=== PATIENT | female | born 1990 | race Caucasian/White ===

== ENCOUNTER → 2017-02-02 | Outpatient (CLI) | payer BC ==
--- NOTE | 2017-02-03 | MR ---
EXAMINATION TYPE: MR abdomen wo/w con DATE OF EXAM: 02/02/2017 COMPARISON: NONE HISTORY: lt lower quad pain CONTRAST: Standard multiplanar, multisequence MRI departmental protocol utilizing 8.5 mL intravenous Gadavist g adolinium contrast. FINDINGS: Liver spleen pancreas appear normal. Gallbladder is contracted. Bile ducts are not dilated. There is no adrenal mass. Kidneys have normal size and contour. There is no hydronephrosis. There is no evidence of retroperitoneal adenopathy. There is no ascites. I see no sign of an intestinal mass. There is no pathologic enhancement. There is no sign of pleural effusion. Contrast images show no pat hologic enhancement. There is normal contrast opacification of the kidneys. There is probably a 5 mm cyst in the interpolar right kidney. I see no bony destructive process. IMPRESSION: Small right renal cortical cyst. Otherwise negative MR scan of the abdomen.
== END | disposition home or self-care (01) ==
LOC: RADMRIMAIN 05:51
PROVIDERS: ATTEND Family Medicine
DX: N28.1 Cyst of kidney, acquired (principal)
CPT/HCPCS: 74183; A9581

== ENCOUNTER → 2017-02-03 | Outpatient (CLI) | payer BC ==
--- NOTE | 2017-02-03 07:23 | MR ---
EXAMINATION TYPE: MR pelvis wo/w con DATE OF EXAM: 02/03/2017 COMPARISON: MRI abdomen from yesterday. HISTORY: lt lower quad pain CONTRAST: Standard multiplanar, multisequence MRI departmental protocol utilizing 8.5 mL intravenous Gadavist g adolinium contrast. Imaging is performed of the pelvis. FINDINGS: Uterus is heterogeneous in appearance, anteverted in shape, and normal in size. Endometrial canal and junctional zone are felt within normal limits. There is 5 mm nabothian cyst seen in left a spect of cervix on axial image 12. No free fluid in pelvic cul-de-sac is present. Both ovaries are id entified, right ovary seen best on series 501 image 18 and left ovary on axial image 24. Both ovaries are normal in size with scattered peripheral follicles. No suspicious adnexal masses are seen. Visualized portion of bowel shows no suspicious dilatation. There is some prominence of fecal materia l in the rectum. There is no greater than 1 cm pelvic adenopathy. No suspicious groin adenopathy is seen. No suspiciou s fat or bowel containing inguinal hernia is present. Visualized osseous structures are intact. Hip joint spaces are maintained. Pubic symphysis is intact. Sacroiliac joints are felt within normal limits. No suspicious postcontrast enhancement is seen. IMPRESSION: Moderate rectal colonic fecal stasis. No bowel obstruction is seen. Incidental 5 mm left-sided naboth lucrecia cyst otherwise unremarkable study.
== END | disposition home or self-care (01) ==
LOC: RADMRIMAIN 05:58
PROVIDERS: ATTEND Family Medicine
DX: K56.41 Fecal impaction (principal)
CPT/HCPCS: 72197; A9581

== ENCOUNTER 2017-06-30 10:47 | Emergency (ER) | payer BC ==
[2017-06-30 11:42] LABS: Bacteria,Urine Few /hpf; Hyaline Casts,Urine 29 /lpf (0-2); Mucus,Urine Occasional /hpf; RBC,Urine 11 /hpf (0-5); Squamous Epithelial Cell,Urine 12 /hpf (0-4); WBC,Urine >182 /hpf (0-5)
[2017-06-30 11:44] LABS: Appearance,Urine Cloudy (Clear)
[2017-06-30 11:45] LABS: Color,Urine Dark Orange
[2017-06-30] MEDS ORDERED: FLUCONAZOLE 150 MG TAB PO STA (13:50)
[2017-06-30] MEDS ORDERED: ONDANSETRON 4 MG TAB PO STA (13:50)
--- NOTE | 2017-06-30 14:04 | ED ---
Abdominal Pain HPI - General Chief Complaint: Abdominal Pain Stated Complaint: POSS UTI, UNABLE TO EAT Time Seen by Provider: 06/30/17 13:42 Source: patient, RN notes reviewed Mode of arrival: ambulatory Limitations: no limitations - History of Present Illness Initial Comments: This is a 26 year old female who presents with a chief complaint of abdominal pain and urinary tract infection. The patient began treatment with Bactrim twice daily 3 days ago, but has shown no improvement of symptoms. The patient states she has now developed a yeast infection and has felt nauseous since beginning the Bactrim. She is currently taking AZO to help relieve her symptoms. She reports her last bowel movement was 4 days ago and it was loose. She denies fever or back pain. She currently feels nauseous and has had limited food intake due to GI upset. Patient states symptoms also started after starting Bactrim - Related Data Home Medications Medication Instructions Recorded Confirmed Ibuprofen [Motrin Ib] 800 mg PO Q6H PRN 06/30/17 06/30/17 Norgestimate-Ethinyl Estradiol 1 tab PO HS 06/30/17 06/30/17 [Sprintec 28 Day Tablet] Sulfamethox-Tmp 800-160Mg [Bactrim 1 tab PO Q12HR 06/30/17 06/30/17 DS 800-160 mg] Uristat 1 tab PO QID PRN 06/30/17 06/30/17 Previous Rx's Medication Instructions Recorded Ciprofloxacin HCl [Cipro] 500 mg PO Q12HR #14 tablet 06/30/17 Fluconazole [Diflucan] 150 mg PO ONCE #2 tab 06/30/17 Ondansetron Odt [Zofran Odt] 4 mg PO Q8HR PRN #10 tab 06/30/17 Allergies Allergy/AdvReac Type Severity Reaction Status Date / Time hydrocodone [From Vicodin] Allergy Nausea & Verified 06/30/17 13:52 Vomiting Review of Systems ROS Statement: Those systems with pertinent positive or pertinent negative responses have been documented in the HPI. ROS Other: All systems not noted in ROS Statement are negative. Past Medical History Past Medical History: No Reported History History of Any Multi-Drug Resistant Organisms: None Reported Past Surgical History: Adenoidectomy, Ear Surgery, Tonsillectomy Past Psychological History: No Psychological Hx Reported Smoking Status: Never smoker Past Alcohol Use History: None Reported Past Drug Use History: Marijuana General Exam Limitations: no limitations General appearance: alert, in no apparent distress Head exam: Present: atraumatic, normocephalic, normal inspection Respiratory exam: Present: normal lung sounds bilaterally. Absent: respiratory distress, wheezes, rales, rhonchi, stridor Cardiovascular Exam: Present: regular rate, normal rhythm, normal heart sounds. Absent: systolic murmur, diastolic murmur, rubs, gallop, clicks GI/Abdominal exam: Present: soft, normal bowel sounds. Absent: distended, tenderness, guarding, rebound, rigid Extremities exam: Present: normal inspection, full ROM, normal capillary refill. Absent: tenderness, pedal edema, joint swelling, calf tenderness Back exam: Present: normal inspection. Absent: CVA tenderness (R), CVA tenderness (L) Neurological exam: Present: alert, oriented X3, CN II-XII intact Psychiatric exam: Present: normal affect, normal mood Skin exam: Present: warm, dry, intact, normal color. Absent: rash Course Vital Signs 06/30/17 06/30/17 11:11 14:19 Temperature 97.9 F Pulse Rate 94 60 Respiratory 18 16 Rate Blood Pressure 125/72 124/78 O2 Sat by Pulse 96 95 Oximetry Medical Decision Making - Medical Decision Making This 26 year old patient presented with a urinary tract infection that was refractory to treatment with Bactrim. I spoke with the urgent care that prescribed the Bactrim and they informed me that there was no growth on the urine culture that was sent. A urinalysis and urine culture was ordered. She was given a dose of Diflucan 150mg and Zofran for nausea. The patient was instructed to discontinue the Bactrim and begin the Ciprofloxacin. She may take Zofran as needed for nausea and continue the Diflucan for her concurrent yeast infection. - Lab Data Lab Results 06/30/17 Range/Units 11:20 Urine Color [place] Urine Appearance Cloudy H (Clear) Urine RBC 11 H (0-5) /hpf Urine WBC >182 H (0-5) /hpf Ur Squamous Epith Cells 12 H (0-4) /hpf Urine Bacteria Few H (None) /hpf Hyaline Casts 29 H (0-2) /lpf Urine Mucus Occasional H (None) /hpf Disposition Clinical Impression: Urinary tract infection, Yeast infection of the vagina, Nausea Disposition: HOME SELF-CARE Condition: Stable Instructions: Urinary Tract Infection in Women (ED) Additional Instructions: Please return to the Emergency Department if experiencing new or worsening symptoms. Prescriptions: Ciprofloxacin HCl [Cipro] 500 mg PO Q12HR #14 tablet Fluconazole [Diflucan] 150 mg PO ONCE #2 tab Ondansetron Odt [Zofran Odt] 4 mg PO Q8HR PRN #10 tab PRN Reason: Nausea Referrals: Jose Hernandez MD [Primary Care Provider] - 1-2 days Time of Disposition: 14:20
[2017-06-30 14:19] VITALS: RESP 16
[2017-06-30] MEDS ORDERED: cefTRIAXone 1,000 MG VIAL (IM USE) IM STA (14:22)
[2017-06-30 14:51] VITALS: BP 130/71; PULSE 92; TEMP 97.8
== END 2017-06-30 14:50 | disposition home or self-care (01) ==
LOC: EC 10:47
DX: N39.0 Urinary tract infection, site not specified (principal); B37.3 Candidiasis of vulva and vagina; R11.0 Nausea; Z79.3 Long term (current) use of hormonal contraceptives; Z88.5 Allergy status to narcotic agent
CPT/HCPCS: 81001; 81025; 87086; 99284; 96372; J0696

== ENCOUNTER 2018-04-20 19:16 | Emergency (ER) | payer BC ==
[2018-04-20 19:26] VITALS: TEMP 98.5
[2018-04-20 20:38] LABS: Basophils % (A) 0 %; Eosinophils # (A) 0.2 k/uL (0-0.7); Eosinophils % (A) 3 %; HCT 38.4 % (34.0-46.0); HGB 12.2 gm/dL (11.4-16.0); Lymphocytes # (A) 1.8 k/uL (1.0-4.8); Lymphocytes % (A) 18 %; MCH 27.7 pg (25.0-35.0); MCHC 31.7 g/dL (31.0-37.0); MCV 87.5 fL (80.0-100.0); Mean Platelet Volume 6.9; Monocytes # (A) 0.5 k/uL (0-1.0); Monocytes % (A) 5 %; Neutrophils # (A) 7.1 k/uL (1.3-7.7); Neutrophils % (A) 72 %; Platelet Count 245 k/uL (150-450); RBC 4.39 m/uL (3.80-5.40); RDW 13.1 % (11.5-15.5); WBC 9.8 k/uL (3.8-10.6)
[2018-04-20 20:40] LABS: Appearance,Urine Clear (Clear); Bacteria,Urine Rare /hpf; Bilirubin,Urine Negative (Negative); Blood,Urine Negative (Negative); Color,Urine Light Yellow; Glucose,Urine (UA) Negative (Negative); Ketones,Urine Negative (Negative); Leukocyte Esterase,Urine Trace (Negative); Mucus,Urine Rare /hpf; Nitrite,Urine Negative (Negative); Protein,Urine Negative (Negative); RBC,Urine 1 /hpf (0-5); Specific Gravity,Urine 1.012 (1.001-1.035); Squamous Epithelial Cell,Urine 3 /hpf (0-4); Urobilinogen,Urine <2.0 mg/dL (<2.0)
[2018-04-20 20:48] LABS: ALT 33 U/L (9-52); AST 19 U/L (14-36); Alkaline Phosphatase 70 U/L (38-126); Anion Gap 9 mmol/L; Blood Urea Nitrogen 15 mg/dL (7-17); Calcium 9.7 mg/dL (8.4-10.2); Carbon Dioxide 25 mmol/L (22-30); Chloride 107 mmol/L (98-107); Glucose 109 mg/dL (74-99); Sodium 141 mmol/L (137-145); Total Bilirubin 0.2 mg/dL (0.2-1.3); Total Protein 6.8 g/dL (6.3-8.2)
[2018-04-20 22:14] VITALS: RESP 16
--- NOTE | 2018-04-20 22:30 | CT ---
EXAMINATION TYPE: CT brain wo con DATE OF EXAM: 04/20/2018 COMPARISON: None HISTORY: headache x7 days CT DLP: 8.8 combined study mGycm. Automated Exposure Control for Dose Reduction was Utilized. TECHNIQUE: CT scan of the head is performed without contrast. FINDINGS: Ventricles of normal size. There is no mass effect nor midline shift. There is no sign of i ntracranial hemorrhage. The calvarium is intact. IMPRESSION: Negative CT scan of the brain.
--- NOTE | 2018-04-20 22:33 | CT ---
EXAMINATION TYPE: CT angio [facility] DATE OF EXAM: 04/20/2018 10:03 PM COMPARISON: None HISTORY: headache x7 days CT DLP: 2037.8 combined study mGycm Automated exposure control for dose reduction was used. TECHNIQUE: Performed with IV Contrast, patient injected with 100 mL of Isovue 370. . There are 3-D post processed images. FINDINGS: There is arterial flow in the vertebrobasilar artery system. There is arterial flow in the distal int ernal carotid arteries bilaterally. There is normal contrast opacification of the venous sinuses. There is normal arterial flow in the anterior middle and posterior cerebral arteries bilaterally. I s ee no mass effect. There is no evidence of aneurysm or neovascularity. There is no evidence of spasm or stenosis. IMPRESSION: NEGATIVE CT ANGIOGRAM OF THE BRAIN.
[2018-04-20] MEDS ORDERED: KETOROLAC 30 MG/ML 1 ML VIAL IVP STA (22:52)
[2018-04-20] MEDS ORDERED: ONDANSETRON 4 MG/2 ML VIAL IVP STA (22:53)
[2018-04-20] MEDS ORDERED: diphenhydrAMINE 50 MG/ML 1 ML VIAL IVP STA (22:53)
--- NOTE | 2018-04-20 22:54 | ED ---
Headache HPI - General Chief Complaint: Headache Stated Complaint: Headache Mode of arrival: ambulatory Limitations: no limitations - History of Present Illness Initial Comments: 27yo female with PMH of chronic migraines presenting today for cc of headache x 2 days. Pt states that two days ago she developed a headache, she states at first it was dull aching, gradually increasing in intensity. Pt describes it as squeezing sensation from posterior head toward forehead, 7/10. Pt admits to some nausea, stating sometimes with her headaches she experiences nausea and vomiting. Pt attempted to take excedrin and motrin for pain mgmt, she states this helped minimally. She was seen at a [facility] and prescribed steroids, She states this did not help alleviated symptoms. When symptoms persisted this evening, pt mother states she is concerned of brain anerusym as the mother's sister had one that had to be coiled. Pt denies visual changes, diplopia, facial assymetry, speech or gait changes, muscles weakness, sensation loss of differences in UE or LE, parathesias, memory changes, confusion, neck pain/ stiffness, photophobia, fever, chills, nightsweats. Upon arrival pt is well appearing, no signs of acute distress. Sitting in well lit room, no squinting. Pt ambulated without difficulty. - Related Data Home Medications Medication Instructions Recorded Confirmed methylPREDNISolone [Medrol Dose 4 mg PO DIRECTED 04/20/18 04/20/18 Pack] Previous Rx's Medication Instructions Recorded Ibuprofen 800 mg PO Q8H PRN 7 Days #21 tablet 04/20/18 Allergies Allergy/AdvReac Type Severity Reaction Status Date / Time hydrocodone [From Vicodin] AdvReac Nausea & Verified 04/20/18 19:36 Vomiting sulfamethoxazole AdvReac Nausea & Verified 04/20/18 19:36 [From Bactrim] Vomiting trimethoprim [From Bactrim] AdvReac Nausea & Verified 04/20/18 19:36 Vomiting Review of Systems ROS Statement: Those systems with pertinent positive or pertinent negative responses have been documented in the HPI. ROS Other: All systems not noted in ROS Statement are negative. Constitutional: Denies: fever, chills, night sweats Eyes: Denies: vision change ENT: Denies: ear pain, hearing loss Respiratory: Denies: cough, dyspnea, wheezes, hemoptysis, stridor Cardiovascular: Denies: chest pain Gastrointestinal: Reports: nausea, vomiting (denies vomiting but has experienced with past headaches). Denies: abdominal pain, diarrhea, constipation, hematemesis Genitourinary: Denies: urgency, dysuria Musculoskeletal: Denies: back pain Skin: Denies: rash, lesions Neurological: Reports: headache. Denies: weakness, numbness, paresthesias, confusion, abnormal gait, vertigo Past Medical History Past Medical History: No Reported History Additional Past Medical History / Comment(s): headaches History of Any Multi-Drug Resistant Organisms: None Reported Past Surgical History: Adenoidectomy, Ear Surgery, Tonsillectomy Past Psychological History: No Psychological Hx Reported Smoking Status: Never smoker Past Alcohol Use History: None Reported Past Drug Use History: Marijuana General Exam - General Exam Comments Initial Comments: General: The patient is awake and alert, in no distress, and does not appear acutely ill. Eye: +3 pupils are equal, round and reactive to light, extra-ocular movements are intact. No APD, no noted photophonia. No nystagmus. There is normal conjunctiva bilaterally. No signs of icterus. No tenderness to palpation of the temporal arteries. No pain to palpation of the sinuses. Ears, nose, mouth and throat: There are moist mucous membranes and no oral lesions. Neck: The neck is supple, there is no tenderness or JVD. Cardiovascular: There is a regular rate and rhythm. No murmur, rub or gallop is appreciated. Respiratory: Lungs are clear to auscultation, respirations are non-labored, breath sounds are equal. No wheezes, stridor, rales, or rhonchi. Musculoskeletal: Normal ROM, no tenderness. Strength 5/5. Sensation intact. Pulses equal bilaterally 2+. Neurological: A&O x 3. CN II-XII intact, memory intact to immediately, intermediate and long-term recall. Able to follow simple verbal. Able to name a common object (pen). High quality, labial (pa) and lingual (la) speech. Low quality posterior pharynx/larynx (ga) voice sounds. Able to express general knowledge (days in a week). No hemineglect or inattention noted. Finger agnosia (-) and spatially oriented (identified L index finger touched R shoulder with L index finger). Light touch and temperature sensation present over the face, chest, abdomen, back, UE bilaterally, and LE bilaterally. Able to localize point during point localization b/l and extinction. No visible bulk atrophy, hypertrophy, fasciculations, or myoclonus of the UE or LE b/l. Full PROM in UE and LE b/l. Bilateral muscle strength 5/5 for the following muscles: deltoid, biceps, triceps, brachioradialis, wrist extensors/flexor, hip flexor, hip abductors/adductors, hamstrings, quadriceps, feet dorsiflexors/plantar flexors. Finger to nose, finger to the examiners finger, and heel to nur coordinated and accurate b/l. Coordinated and even demonstration of hand flip, finger to thumb, and toe tap b/l. Gait is coordinated and even in stride with tandem, toe and heel walk. Maintains balance with monopedal stance. (-) Romberg. (-) pronator drift. No nuchal rigidity. (-) Brudzinskis and Kernig signs, Skin: Skin is warm and dry and no rashes or lesions are noted. Psychiatric: Cooperative, appropriate mood & affect, normal judgment. Limitations: no limitations Course Vital Signs 04/20/18 04/20/18 04/20/18 19:22 22:12 23:05 Temperature 98.5 F Pulse Rate 75 60 67 Respiratory 20 16 16 Rate Blood Pressure 115/71 108/58 93/66 O2 Sat by Pulse 100 99 100 Oximetry 04/20/18 23:26 Temperature Pulse Rate 70 Respiratory 16 Rate Blood Pressure 100/80 O2 Sat by Pulse Oximetry Medical Decision Making - Medical Decision Making VS WNL, pt afebrile and well appearing upon arrival. Mother expressed concerned for aneursym pt states this is one of her most persistent headaches. States onset gradual. No focal neurological findings on exam, no meningimus on exam. CT w/o [facility] [place] [facility] [place] obtained, no aneurysm present, no intracranal process. Pt given toradol, benadryl and zofran. Upon reevaluation, pt states that it has improved signficantly. I was notified by nurse after she repeated evaluation that pt was requesting discharge. I spoke with patient and mother. At this time I feel pt is stable for discharge due to clinical improvement,no focal deficits on exam and (-) imaging. Pt well appearing. Case discussed with Dr. Iyer who agreed with impression and plan.Return parameters discussed at length with patient who verbalized understanding, of which included return for worsening, persistent symptoms, or any stroke like symptoms of which were discussed. I recommended primary care f/u with neurology referral for further evaluation for chronic headache. Pt agreeable with d/c plan, dneied questions at this time. Pt discharged in stable condition. - Lab Data Result diagrams: 04/20/18 20:19 04/20/18 20:19 Lab Results 04/20/18 04/20/18 04/20/18 Range/Units 20:19 20:19 20:19 WBC 9.8 (3.8-10.6) k/uL RBC 4.39 (3.80-5.40) m/uL Hgb 12.2 (11.4-16.0) gm/dL Hct 38.4 (34.0-46.0) % MCV 87.5 (80.0-100.0) fL MCH 27.7 (25.0-35.0) pg MCHC 31.7 (31.0-37.0) g/dL RDW 13.1 (11.5-15.5) % Plt Count 245 (150-450) k/uL Neutrophils % 72 % Lymphocytes % 18 % Monocytes % 5 % Eosinophils % 3 % Basophils % 0 % Neutrophils # 7.1 (1.3-7.7) k/uL Lymphocytes # 1.8 (1.0-4.8) k/uL Monocytes # 0.5 (0-1.0) k/uL Eosinophils # 0.2 (0-0.7) k/uL Basophils # 0.0 (0-0.2) k/uL Sodium 141 (137-145) mmol/L Potassium 4.0 (3.5-5.1) mmol/L Chloride 107 (98-107) mmol/L Carbon Dioxide 25 (22-30) mmol/L Anion Gap 9 mmol/L BUN 15 (7-17) mg/dL Creatinine 0.78 (0.52-1.04) mg/dL Est GFR (CKD-EPI)AfAm >90 (>60 ml/min/1.73 sqM) Est GFR (CKD-EPI)NonAf >90 (>60 ml/min/1.73 sqM) Glucose 109 H (74-99) mg/dL Calcium 9.7 (8.4-10.2) mg/dL Total Bilirubin 0.2 (0.2-1.3) mg/dL AST 19 (14-36) U/L ALT 33 (9-52) U/L Alkaline Phosphatase 70 (38-126) U/L Total Protein 6.8 (6.3-8.2) g/dL Albumin 4.0 (3.5-5.0) g/dL Urine Color Urine Appearance (Clear) Urine pH (5.0-8.0) Ur Specific [place] (1.001-1.035) Urine Protein (Negative) Urine Glucose (UA) (Negative) Urine Ketones (Negative) Urine Blood (Negative) Urine Nitrite (Negative) Urine Bilirubin (Negative) Urine Urobilinogen (<2.0) mg/dL Ur Leukocyte Esterase (Negative) Urine RBC (0-5) /hpf Urine WBC (0-5) /hpf Ur Squamous Epith Cells (0-4) /hpf Urine Bacteria (None) /hpf Urine Mucus (None) /hpf Urine HCG, Qual Not Detected (Not Detectd) 04/20/18 Range/Units 20:19 WBC (3.8-10.6) k/uL RBC (3.80-5.40) m/uL Hgb (11.4-16.0) gm/dL Hct (34.0-46.0) % MCV (80.0-100.0) fL MCH (25.0-35.0) pg MCHC (31.0-37.0) g/dL RDW (11.5-15.5) % Plt Count (150-450) k/uL Neutrophils % % Lymphocytes % % Monocytes % % Eosinophils % % Basophils % % Neutrophils # (1.3-7.7) k/uL Lymphocytes # (1.0-4.8) k/uL Monocytes # (0-1.0) k/uL Eosinophils # (0-0.7) k/uL Basophils # (0-0.2) k/uL Sodium (137-145) mmol/L Potassium (3.5-5.1) mmol/L Chloride (98-107) mmol/L Carbon Dioxide (22-30) mmol/L Anion Gap mmol/L BUN (7-17) mg/dL Creatinine (0.52-1.04) mg/dL Est GFR (CKD-EPI)AfAm (>60 ml/min/1.73 sqM) Est GFR (CKD-EPI)NonAf (>60 ml/min/1.73 sqM) Glucose (74-99) mg/dL Calcium (8.4-10.2) mg/dL Total Bilirubin (0.2-1.3) mg/dL AST (14-36) U/L ALT (9-52) U/L Alkaline Phosphatase (38-126) U/L Total Protein (6.3-8.2) g/dL Albumin (3.5-5.0) g/dL Urine Color Light Yellow Urine Appearance Clear (Clear) Urine pH 6.0 (5.0-8.0) Ur Specific [place] 1.012 (1.001-1.035) Urine Protein Negative (Negative) Urine Glucose (UA) Negative (Negative) Urine Ketones Negative (Negative) Urine Blood Negative (Negative) Urine Nitrite Negative (Negative) Urine Bilirubin Negative (Negative) Urine Urobilinogen <2.0 (<2.0) mg/dL Ur Leukocyte Esterase Trace H (Negative) Urine RBC 1 (0-5) /hpf Urine WBC 3 (0-5) /hpf Ur Squamous Epith Cells 3 (0-4) /hpf Urine Bacteria Rare H (None) /hpf Urine Mucus Rare H (None) /hpf Urine HCG, Qual (Not Detectd) Disposition Clinical Impression: Headache Disposition: HOME SELF-CARE Condition: Good Instructions: Acute Headache (ED) Additional Instructions: Please use medication as discussed. Please follow-up with family doctor in the next 2 days. Please return to emergency room if the symptoms increase or worsen or for any other concerns. Prescriptions: Ibuprofen 800 mg PO Q8H PRN 7 Days #21 tablet PRN Reason: Pain Is patient prescribed a controlled substance at d/c from ED?: No Referrals: Jose Hernandez MD [Primary Care Provider] - 1-2 days Time of Disposition: 22:54
[2018-04-20 23:28] VITALS: BP 100/80; PULSE 70
== END 2018-04-20 23:37 | disposition home or self-care (01) ==
LOC: EC 19:16
DX: R51 Headache (principal); R11.0 Nausea; Z88.2 Allergy status to sulfonamides; Z88.5 Allergy status to narcotic agent; Z79.52 Long term (current) use of systemic steroids
CPT/HCPCS: 36415; 80053; 85025; 81001; 81025; 70496; 70450; 99284; 96374; 96375 ×2; J1200; J2405; J1885; Q9967

== ENCOUNTER → 2019-06-24 | Day surgery (SDC) | payer BC, OTHER ==
[2019-06-20 09:29] VITALS: BMI 35.4
[~2019-06-24] MED LIST: BUPIVACAINE (PF) 0.25% 30 ML VIAL SQ ONE; DEXAMETHASONE SOD PHOSPHATE 10 MG/ML 1 ML VIAL IV ONE; HEPARIN SODIUM,PORCINE 5,000 UNIT/ML 1 ML VIAL SQ ONE; LACTATED RINGERS 1,000 ML IV SCH; LIDOCAINE 1% 20 ML VIAL (10MG/ML) FOR IV START INTRADERMA ONE; LIDOCAINE 1% INJ 10MG/ML (20 ML MDV) ONE; MIDAZOLAM 2 MG/2 ML VIAL IV PRN; MIDAZOLAM 2 MG/2 ML VIAL ONE; ONDANSETRON 4 MG/2 ML VIAL IVP ONE; PROPOFOL 10 MG/ML 20 ML VIAL IV ONE; SCOPOLAMINE 1.5MG/72HR PATCH TRANSDERM ONE; fentaNYL (PF) 50 MCG/ML 2 ML AMP IV PRN; fentaNYL (PF) 50 MCG/ML 2 ML AMP ONE; metroNIDAZOLE-NS PMX 500 MG in SALINE 1 100ML.BAG IVPB ONE
[2019-06-24 07:19] VITALS: RESP 16; TEMP 97.8
--- NOTE | 2019-06-24 07:56 | P.GSHP ---
History of Present Illness H&P Date: 06/24/19 Chief Complaint: Pilonidal cyst This a 28-year-old female presents today for excision of chronically inflamed pilonidal cyst. Patient aware that we will be packed after surgery and healed by secondary intention. Past Medical History Past Medical History: No Reported History Additional Past Medical History / Comment(s): migraine headaches, pilonidal cyst History of Any Multi-Drug Resistant Organisms: None Reported Past Surgical History: Adenoidectomy, Ear Surgery, Tonsillectomy Additional Past Surgical History / Comment(s): myringotomy & tubes Past Anesthesia/Blood Transfusion Reactions: Motion Sickness, Postoperative Nausea & Vomiting (PONV) Smoking Status: Never smoker - Past Family History Mother Family Medical History: No Reported History Medications and Allergies Home Medications Medication Instructions Recorded Confirmed Type Melatonin 5 mg PO HS 06/20/19 06/24/19 History Allergies Allergy/AdvReac Type Severity Reaction Status Date / Time hydrocodone [From Vicodin] AdvReac Nausea & Verified 06/24/19 06:58 Vomiting Sulfa (Sulfonamide AdvReac Nausea & Verified 06/24/19 06:58 Antibiotics) Vomiting sulfamethoxazole AdvReac Nausea & Verified 06/24/19 06:58 [From Bactrim] Vomiting trimethoprim [From Bactrim] AdvReac Nausea & Verified 06/24/19 06:58 Vomiting Surgical - Exam Vital Signs Temp Pulse Resp BP Pulse Ox 97.8 F 65 16 114/68 99 06/24/19 07:18 06/24/19 07:18 06/24/19 07:18 06/24/19 07:18 06/24/19 07:18 - General well developed, well nourished, no distress - Eyes PERRL - ENT normal pinna - Neck no masses - Respiratory normal expansion - Cardiovascular Rhythm: regular - Abdomen Abdomen: soft, non tender - Integumentary Chronic pilonidal cyst with evidence of inflammation Assessment and Plan Assessment: Chronic pilonidal cyst. We'll perform excision.
[2019-06-24 08:54] VITALS: BP 100/64; PULSE 64
--- NOTE | 2019-06-24 11:09 | P.OP ---
Date of Procedure: 06/24/19 Preoperative Diagnosis: Pilonidal cyst Postoperative Diagnosis: Pilonidal cyst Procedure(s) Performed: Incision of pilonidal cyst Anesthesia: MAC Surgeon: Fitz Ceron Pathology: other (Pilonidal cyst) Condition: stable Disposition: PACU Description of Procedure: Date of Procedure: 06/24/19 Preoperative Diagnosis: Pilonidal cyst Postoperative Diagnosis: Pilonidal cyst Procedure(s) Performed: Excision of pilonidal cyst Anesthesia: MAC Surgeon: Fitz Ceron Pathology: none sent Condition: stable Disposition: PACU Description of Procedure: Patient's placed on the operating table in the prone position. She received IV sedation. The area of melanosis was prepped and draped usual sterile fashion. There is 1% local Xylocaine. Using a 15 blade skin was incised and using cautery and subcu tissues were divided. The cyst was sent to pathology. The wounds scissors. Any bleeding points Bovie... He was then packed with wet-to-dry Kerlix. Patient top she will was sent to recovery in stable condition.
== END | disposition home or self-care (01) ==
LOC: OR 06:26
PROVIDERS: ATTEND Surgery
DX: L05.01 Pilonidal cyst with abscess (principal); G43.909 Migraine, unspecified, not intractable, without status migrainosus; E66.9 Obesity, unspecified; Z68.35 Body mass index [BMI] 35.0-35.9, adult; Z88.2 Allergy status to sulfonamides; Z88.5 Allergy status to narcotic agent; Z90.89 Acquired absence of other organs; Z96.22 Myringotomy tube(s) status; Z79.899 Other long term (current) drug therapy
CPT/HCPCS: 81025; 88304; 11770; J2250; J1644; J1100; J0690; J2405; J2001; J3010; J2704

== ENCOUNTER 2019-06-30 12:37 | Emergency (ER) | payer OTHER ==
[2019-06-30 12:42] VITALS: TEMP 98.1
[2019-06-30] MEDS ORDERED: ACET/COD 300 MG/30 MG STARTER PACK 6 TAB BTL PO STA (13:15)
[2019-06-30] MEDS ORDERED: ONDANSETRON ODT 4 MG TAB PO STA (13:15)
--- NOTE | 2019-06-30 13:46 | ED ---
Recheck HPI - General Chief Complaint: Recheck/Abnormal Lab/Rx Stated Complaint: wound Time Seen by Provider: 06/30/19 12:55 Source: patient Mode of arrival: ambulatory - History of Present Illness Initial Comments: 28yofemale presenting today for chief complaint of clearish red drainage increasing out of wound. Patient states that she has had excision of a pilonidal cyst 6 days ago. Patient states that she is to pack it daily. Patient states she noticed more drainage today. Patient has a purulent drainage or malodorous patient is a fever flu like a general malaise. Patient states is tender at the area if it is packed remaining review of systems negative upon arrival patient appears well afebrile no signs of acute distress no other complaints. - Related Data Home Medications Medication Instructions Recorded Confirmed Melatonin 5 mg PO HS 06/20/19 06/24/19 Previous Rx's Medication Instructions Recorded Docusate [Colace] 100 mg PO BID #20 capsule 06/24/19 HYDROcodone/APAP 5-325MG [[place] 1 tab PO Q6HR PRN #10 tab 06/24/19 5-325] Allergies Allergy/AdvReac Type Severity Reaction Status Date / Time hydrocodone [From Vicodin] AdvReac Nausea & Verified 06/30/19 12:42 Vomiting Sulfa (Sulfonamide AdvReac Nausea & Verified 06/30/19 12:42 Antibiotics) Vomiting sulfamethoxazole AdvReac Nausea & Verified 06/30/19 12:42 [From Bactrim] Vomiting trimethoprim [From Bactrim] AdvReac Nausea & Verified 06/30/19 12:42 Vomiting Review of Systems ROS Statement: Those systems with pertinent positive or pertinent negative responses have been documented in the HPI. ROS Other: All systems not noted in ROS Statement are negative. Past Medical History Past Medical History: No Reported History Additional Past Medical History / Comment(s): migraine headaches, pilonidal cyst History of Any Multi-Drug Resistant Organisms: None Reported Past Surgical History: Adenoidectomy, Ear Surgery, Tonsillectomy Additional Past Surgical History / Comment(s): myringotomy & tubes Past Anesthesia/Blood Transfusion Reactions: Motion Sickness, Postoperative Nausea & Vomiting (PONV) Past Psychological History: No Psychological Hx Reported Smoking Status: Never smoker Past Alcohol Use History: None Reported Past Drug Use History: None Reported - Past Family History Mother Family Medical History: No Reported History General Exam - General Exam Comments Initial Comments: General: The patient is awake and alert, in no distress, and does not appear acutely ill. Eye: Pupils are equal, round and reactive to light, extra-ocular movements are intact. No nystagmus. There is normal conjunctiva bilaterally. No signs of icterus. Cardiovascular: There is a regular rate and rhythm. No murmur, rub or gallop is appreciated. Respiratory: Lungs are clear to auscultation, respirations are non-labored, breath sounds are equal. No wheezes, stridor, rales, or rhonchi. Gastrointestinal: Soft, non-distended, non-tender abdomen without masses or organomegaly noted. There is no rebound or guarding present. Musculoskeletal: Normal ROM, no tenderness. Strength 5/5. Sensation intact. Pulses equal bilaterally 2+. Neurological: A&O x 3. CN II-XII intact, There are no obvious motor or sensory deficits. Coordination appears grossly intact. Speech is normal. Skin: Skin is warm and dry and no rashes. Large 5x4cm incision that wound edges approximate rather than gapping. Serosanguineous fluid present inside mild to moderate. No bright red blood. No packing was inside the wound. No redness surrounding the incisional area. No purulent drainage. Psychiatric: Cooperative, appropriate mood & affect, normal judgment. Course Vital Signs 06/30/19 06/30/19 12:39 14:05 Temperature 98.1 F 98.1 F Pulse Rate 87 67 Respiratory 16 18 Rate Blood Pressure 120/81 105/57 O2 Sat by Pulse 100 100 Oximetry Medical Decision Making - Medical Decision Making 28yo female presenting today for chief complaint of pilondal cyst drainage after excision. Physical examination findings appear consistent with postoperative status. Patient wound was packed in ER. No signs of infection or hemorrhage. Discussed case with Dr. Villanueva who was agreeable to care plan and discharge with calling surgeon on monday to discuss follow-up. Disposition Clinical Impression: Post-operative pain, Drainage from wound Disposition: HOME SELF-CARE Condition: Good Instructions (If sedation given, give patient instructions): Pilonidal Cyst Excision (DC) Additional Instructions: Please use medication as discussed. Please follow-up with surgeon in next week, contact surgeon on Monday to discuss today visit and scheduled appointment. Please return to emergency room if the symptoms increase or worsen or for any other concerns, fevers, bleeding as discussed. Is patient prescribed a controlled substance at d/c from ED?: No Referrals: Sergio Louise III, MD [Primary Care Provider] - 1-2 days Fitz Ceron MD [STAFF PHYSICIAN] - 1-2 days Time of Disposition: 13:59
[2019-06-30 14:08] VITALS: BP 105/57; PULSE 67; RESP 18
== END 2019-06-30 14:05 | disposition home or self-care (01) ==
LOC: EC 12:37
DX: G89.18 Other acute postprocedural pain (principal); T81.31XA Disruption of external operation (surgical) wound, not elsewhere classified, initial encounter; Z88.5 Allergy status to narcotic agent; Z88.2 Allergy status to sulfonamides; Z88.1 Allergy status to other antibiotic agents; Z87.2 Personal history of diseases of the skin and subcutaneous tissue; Z98.890 Other specified postprocedural states
CPT/HCPCS: 99283

== ENCOUNTER 2022-05-24 02:00 | Emergency (ER) | payer OTHER ==
[2022-05-24 02:05] VITALS: TEMP 97.5
[2022-05-24] MEDS ORDERED: ONDANSETRON 4 MG/2 ML VIAL IVP STA (03:00)
[2022-05-24] MEDS ORDERED: SODIUM CHLORIDE 0.9% 1,000 ML IV STA (03:00)
[2022-05-24 03:32] LABS: Albumin 4.2 g/dL (3.5-5.0); Potassium 3.9 mmol/L (3.5-5.1); Total Bilirubin 0.3 mg/dL (0.2-1.3)
[2022-05-24 03:35] LABS: Basophils # (A) 0.1 k/uL (0-0.2); Basophils % (A) 1 %; Eosinophils # (A) 0.2 k/uL (0-0.7); Eosinophils % (A) 2 %; HCT 39.3 % (34.0-46.0); HGB 12.7 gm/dL (11.4-16.0); Lymphocytes # (A) 1.7 k/uL (1.0-4.8); Lymphocytes % (A) 19 %; MCH 27.8 pg (25.0-35.0); MCHC 32.3 g/dL (31.0-37.0); MCV 85.9 fL (80.0-100.0); Monocytes # (A) 0.4 k/uL (0-1.0); Monocytes % (A) 5 %; Neutrophils # (A) 6.5 k/uL (1.3-7.7); Neutrophils % (A) 72 %; Platelet Count 203 k/uL (150-450); RBC 4.58 m/uL (3.80-5.40); RDW 13.3 % (11.5-15.5)
--- NOTE | 2022-05-24 03:44 | ED ---
Abdominal Pain HPI - General Source: patient Mode of arrival: ambulatory Limitations: no limitations <Aundrea Scott - Last Filed: 05/24/22 04:28> <Mark Frazier - Last Filed: 05/24/22 08:38> - General Chief Complaint: Abdominal Pain Stated Complaint: Abdominal pain Time Seen by Provider: 05/24/22 02:51 - History of Present Illness Initial Comments: Patient is a 31-year-old female presenting with chief complaint of abdominal pain. Patient states that at 8 PM this evening she started having bilateral upper quadrant pain. Patient was also having burning sensation in the center of her chest. Patient states that symptoms were alleviated after vomiting. She continues to have nausea. No difficulty breathing. No fever or chills. No hematemesis, hematochezia, melena. No palpitations or weakness. No headache or dizziness. Patient states that this might be one of her "gallbladder attacks". (Aundrea Scott) - Related Data Home Medications Medication Instructions Recorded Confirmed Melatonin 5 mg PO HS 06/20/19 06/24/19 Previous Rx's Medication Instructions Recorded Docusate [Colace] 100 mg PO BID #20 capsule 06/24/19 HYDROcodone/APAP 5-325MG [[place] 1 tab PO Q6HR PRN #10 tab 06/24/19 5-325] Allergies Allergy/AdvReac Type Severity Reaction Status Date / Time hydrocodone [From Vicodin] AdvReac Nausea & Verified 05/24/22 02:02 Vomiting Sulfa (Sulfonamide AdvReac Nausea & Verified 05/24/22 02:02 Antibiotics) Vomiting sulfamethoxazole AdvReac Nausea & Verified 05/24/22 02:02 [From Bactrim] Vomiting trimethoprim [From Bactrim] AdvReac Nausea & Verified 05/24/22 02:02 Vomiting Review of Systems ROS Other: All systems not noted in ROS Statement are negative. <Aundrea Scott - Last Filed: 05/24/22 04:28> ROS Other: All systems not noted in ROS Statement are negative. <Mark Frazier - Last Filed: 05/24/22 08:38> ROS Statement: Those systems with pertinent positive or pertinent negative responses have been documented in the HPI. Past Medical History Past Medical History: No Reported History Additional Past Medical History / Comment(s): migraine headaches, pilonidal cyst History of Any Multi-Drug Resistant Organisms: None Reported Past Surgical History: Adenoidectomy, Ear Surgery, Tonsillectomy Additional Past Surgical History / Comment(s): myringotomy & tubes Past Anesthesia/Blood Transfusion Reactions: Motion Sickness, Postoperative Nausea & Vomiting (PONV) Past Psychological History: No Psychological Hx Reported Smoking Status: Never smoker Past Alcohol Use History: None Reported Past Drug Use History: None Reported - Past Family History Mother Family Medical History: No Reported History <Aundrea Scott - Last Filed: 05/24/22 04:28> General Exam Limitations: no limitations General appearance: alert, in no apparent distress Head exam: Present: atraumatic, normocephalic, normal inspection Eye exam: Present: normal appearance Neck exam: Present: normal inspection Respiratory exam: Present: normal lung sounds bilaterally. Absent: respiratory distress, wheezes, rales, rhonchi, stridor Cardiovascular Exam: Present: regular rate, normal rhythm, normal heart sounds. Absent: systolic murmur, diastolic murmur, rubs, gallop, clicks GI/Abdominal exam: Present: soft, tenderness (Mild tenderness to the bilateral upper quadrants). Absent: distended, guarding, rebound, rigid Neurological exam: Present: alert, oriented X3, CN II-XII intact Psychiatric exam: Present: normal affect, normal mood Skin exam: Present: warm, dry, intact, normal color. Absent: rash <Aundrea Scott - Last Filed: 05/24/22 04:28> Course <Aundrea Scott - Last Filed: 05/24/22 04:28> Vital Signs 05/24/22 05/24/22 05/24/22 02:03 02:49 03:16 Temperature 97.5 F L Pulse Rate 75 69 70 Respiratory 18 18 18 Rate Blood Pressure 136/87 105/61 95/61 O2 Sat by Pulse 98 98 98 Oximetry 05/24/22 05/24/22 05/24/22 04:42 06:03 07:03 Temperature Pulse Rate 72 78 73 Respiratory 16 18 16 Rate Blood Pressure 90/55 92/65 O2 Sat by Pulse 98 97 98 Oximetry - Reevaluation(s) Reevaluation #1: Patient is signed out to my attending Dr. Madera for further management and disposition 05/24/22 04:28 (Aundrea Scott) Medical Decision Making - Lab Data Result diagrams: 05/24/22 02:31 05/24/22 02:31 - EKG Data -: EKG Interpreted by Me <Aundrea Scott - Last Filed: 05/24/22 04:28> - Lab Data Result diagrams: 05/24/22 02:31 05/24/22 02:31 <Mark Frazier - Last Filed: 05/24/22 08:38> - Medical Decision Making Patient care signed out to me by previous shift physician, Dr. Madera. Briefly, patient is 31-year-old female presents to the ER for abdominal pain. She had a CT that was suspicious for acute cholecystitis. Plan at sign out was to follow- up with pending right upper quadrant ultrasound. Right upper quadrant ul trasound is unremarkable. Patient reevaluated at bedside found to be in stable medical condition. Labs were reviewed. Unlikely to be acute cholecystitis. Patient discharged with outpatient referral to general surgery (Mark Frazier) - Lab Data Lab Results 05/24/22 05/24/22 05/24/22 Range/Units 02:31 02:31 03:15 WBC 9.0 (3.8-10.6) k/uL RBC 4.58 (3.80-5.40) m/uL Hgb 12.7 (11.4-16.0) gm/dL Hct 39.3 (34.0-46.0) % MCV 85.9 (80.0-100.0) fL MCH 27.8 (25.0-35.0) pg MCHC 32.3 (31.0-37.0) g/dL RDW 13.3 (11.5-15.5) % Plt Count 203 (150-450) k/uL MPV 8.0 Neutrophils % 72 % Lymphocytes % 19 % Monocytes % 5 % Eosinophils % 2 % Basophils % 1 % Neutrophils # 6.5 (1.3-7.7) k/uL Lymphocytes # 1.7 (1.0-4.8) k/uL Monocytes # 0.4 (0-1.0) k/uL Eosinophils # 0.2 (0-0.7) k/uL Basophils # 0.1 (0-0.2) k/uL Sodium 142 (137-145) mmol/L Potassium 3.9 (3.5-5.1) mmol/L Chloride 107 (98-107) mmol/L Carbon Dioxide 25 (22-30) mmol/L Anion Gap 10 mmol/L BUN 11 (7-17) mg/dL Creatinine 0.99 (0.52-1.04) mg/dL Est GFR (CKD-EPI)AfAm 89 (>60 ml/min/1.73 sqM) Est GFR (CKD-EPI)NonAf 78 (>60 ml/min/1.73 sqM) Glucose 106 H (74-99) mg/dL Plasma Lactic Acid Samir 0.9 (0.7-2.0) mmol/L Calcium 9.0 (8.4-10.2) mg/dL Total Bilirubin 0.3 (0.2-1.3) mg/dL AST 22 (14-36) U/L ALT 24 (4-34) U/L Alkaline Phosphatase 90 (38-126) U/L Total Protein 7.0 (6.3-8.2) g/dL Albumin 4.2 (3.5-5.0) g/dL Amylase 89 (30-110) U/L Lipase 249 (23-300) U/L Urine Color Urine Appearance (Clear) Urine pH (5.0-8.0) Ur Specific [place] (1.001-1.035) Urine Protein (Negative) Urine Glucose (UA) (Negative) Urine Ketones (Negative) Urine Blood (Negative) Urine Nitrite (Negative) Urine Bilirubin (Negative) Urine Urobilinogen (<2.0) mg/dL Ur Leukocyte Esterase (Negative) Urine RBC (0-5) /hpf Urine WBC (0-5) /hpf Ur Squamous Epith Cells (0-4) /hpf Urine Bacteria (None) /hpf Urine Mucus (None) /hpf Urine HCG, Qual (Not Detectd) 05/24/22 05/24/22 Range/Units 03:50 03:50 WBC (3.8-10.6) k/uL RBC (3.80-5.40) m/uL Hgb (11.4-16.0) gm/dL Hct (34.0-46.0) % MCV (80.0-100.0) fL MCH (25.0-35.0) pg MCHC (31.0-37.0) g/dL RDW (11.5-15.5) % Plt Count (150-450) k/uL MPV Neutrophils % % Lymphocytes % % Monocytes % % Eosinophils % % Basophils % % Neutrophils # (1.3-7.7) k/uL Lymphocytes # (1.0-4.8) k/uL Monocytes # (0-1.0) k/uL Eosinophils # (0-0.7) k/uL Basophils # (0-0.2) k/uL Sodium (137-145) mmol/L Potassium (3.5-5.1) mmol/L Chloride (98-107) mmol/L Carbon Dioxide (22-30) mmol/L Anion Gap mmol/L BUN (7-17) mg/dL Creatinine (0.52-1.04) mg/dL Est GFR (CKD-EPI)AfAm (>60 ml/min/1.73 sqM) Est GFR (CKD-EPI)NonAf (>60 ml/min/1.73 sqM) Glucose (74-99) mg/dL Plasma Lactic Acid Samir (0.7-2.0) mmol/L Calcium (8.4-10.2) mg/dL Total Bilirubin (0.2-1.3) mg/dL AST (14-36) U/L ALT (4-34) U/L Alkaline Phosphatase (38-126) U/L Total Protein (6.3-8.2) g/dL Albumin (3.5-5.0) g/dL Amylase (30-110) U/L Lipase (23-300) U/L Urine Color Yellow Urine Appearance Cloudy H (Clear) Urine pH 5.5 (5.0-8.0) Ur Specific [place] 1.020 (1.001-1.035) Urine Protein Trace H (Negative) Urine Glucose (UA) Negative (Negative) Urine Ketones Negative (Negative) Urine Blood Negative (Negative) Urine Nitrite Negative (Negative) Urine Bilirubin Negative (Negative) Urine Urobilinogen <2.0 (<2.0) mg/dL Ur Leukocyte Esterase Trace H (Negative) Urine RBC 1 (0-5) /hpf Urine WBC 9 H (0-5) /hpf Ur Squamous Epith Cells 10 H (0-4) /hpf Urine Bacteria Few H (None) /hpf Urine Mucus Occasional H (None) /hpf Urine HCG, Qual Not Detected (Not Detectd) - EKG Data EKG Comments: Sinus rhythm ventricular rate 69. MN interval 145. QRS 105. QT 395. QTC 415. No ST deviation or T wave inversion. (Aundrea Scott) Disposition <Aundrea Scott - Last Filed: 05/24/22 04:28> Is patient prescribed a controlled substance at d/c from ED?: No Time of Disposition: 08:38 <Mark Frazier - Last Filed: 05/24/22 08:38> Clinical Impression: Symptomatic cholelithiasis Disposition: HOME SELF-CARE Condition: Fair Instructions (If sedation given, give patient instructions): Gallstones (ED) Referrals: Sergio Louise III, MD [Primary Care Provider] - 1-2 days Fitz Ceron MD [STAFF PHYSICIAN] - 1-2 days
[2022-05-24 04:12] LABS: Appearance,Urine Cloudy (Clear); Bacteria,Urine Few /hpf; Bilirubin,Urine Negative (Negative); Blood,Urine Negative (Negative); Color,Urine Yellow; Glucose,Urine (UA) Negative (Negative); Ketones,Urine Negative (Negative); Leukocyte Esterase,Urine Trace (Negative); Mucus,Urine Occasional /hpf; Nitrite,Urine Negative (Negative); PH, Urine 5.5 (5.0-8.0); Protein,Urine Trace (Negative); RBC,Urine 1 /hpf (0-5); Squamous Epithelial Cell,Urine 10 /hpf (0-4); Urobilinogen,Urine <2.0 mg/dL (<2.0); WBC,Urine 9 /hpf (0-5)
--- NOTE | 2022-05-24 04:44 | CT ---
EXAMINATION TYPE: CT abdomen pelvis w con DATE OF EXAM: 05/24/2022 COMPARISON: None HISTORY: abd pain CT DLP: 1026.4 mGycm Automated exposure control for dose reduction was used. CONTRAST: Performed with IV Contrast, patient injected with 100 mL of Isovue 300. Images obtained from the diaphragm to the floor the pelvis with the IV contrast. Lung bases are clear. No pleural effusion. Heart size is normal. No pericardial effusion. Liver spleen and stomach pancreas appear intact. There is small amount of fluid around the gallbladde r. The bile ducts are not dilated. There is no adrenal mass. Kidneys show satisfactory contrast opacification. No hydronephrosis. Ureter s are not dilated. No retroperitoneal adenopathy. Uterus is anteverted. There is 3 cm cyst on the rig ht ovary. No inguinal hernia. No free fluid in the pelvis. The lumbar vertebra show normal alignment. There is bilateral L5 spondylolysis without spondylolisthe sis. The bony pelvis is intact. The hip joints are intact. There is no mesenteric edema. No ascites or free air. No sign of a bowel obstruction. Appendix is med ial and within normal limits. Appendix measures up to 8.5 mm. No evidence of appendicitis. IMPRESSION: There is some pericholecystic fluid that could relate to acute cholecystitis. No dilated ducts. No ev idence of appendicitis.
--- NOTE | 2022-05-24 07:48 | US ---
EXAMINATION TYPE: US abdomen limited DATE OF EXAM: 05/24/2022 COMPARISON: CT abdomen and pelvis 05/24/2022 CLINICAL HISTORY: RUQ pain, r/o steff. pain TECHNIQUE: Multiple sonographic images of the right upper quadrant are obtained. FINDINGS: EXAM MEASUREMENTS: Liver Length: 15.7 cm Gallbladder Wall: .6 cm CBD: .3 cm Right Kidney: 9 x 4.4 x 4.5 cm QUALITY PROCESS LEAD NOTES: Pancreas: Tail obscured by overlying bowel gas Liver: Increased attenuation Gallbladder: Stones visualized. Evidence for sonographic Don's sign: No CBD: wnl Right Kidney: wnl Pancreatic tail is obscured by overlying bowel gas. Diffuse increased attenuation to the liver withou t focal lesion. Contracted gallbladder with wall thickening measuring up to 6 mm and shadowing gallst one. No pericholecystic fluid. Common bile duct is within normal limits. Right kidney is unremarkable without evidence of hydronephrosis, shadowing calculi, or contour deforming solid mass. IMPRESSION: 1. No acute processes. 2. Cholelithiasis with contracted gallbladder. No ultrasound evidence for acute cholecystitis. 3. Hepatic steatosis.
[2022-05-24 08:55] VITALS: BP 93/64; PULSE 74; RESP 18
== END 2022-05-24 08:55 | disposition home or self-care (01) ==
LOC: EC 02:00
DX: K80.20 Calculus of gallbladder without cholecystitis without obstruction (principal); K76.0 Fatty (change of) liver, not elsewhere classified; Z88.1 Allergy status to other antibiotic agents; Z88.2 Allergy status to sulfonamides; Z88.5 Allergy status to narcotic agent
CPT/HCPCS: 36415; 93005; 80053; 82150; 83605; 83690; 85025; 81001; 81025; 76705; 74177; 99285; 96374; 96361; J2405; Q9967

== ENCOUNTER 2022-05-31 02:35 | Observation (INO) | payer OTHER ==
[2022-05-31 03:05] LABS: Basophils % (A) 0 %; Eosinophils # (A) 0.3 k/uL (0-0.7); Eosinophils % (A) 3 %; HGB 12.9 gm/dL (11.4-16.0); Lymphocytes # (A) 2.4 k/uL (1.0-4.8); Lymphocytes % (A) 25 %; MCH 27.9 pg (25.0-35.0); MCV 84.3 fL (80.0-100.0); Mean Platelet Volume 8.2; Monocytes # (A) 0.5 k/uL (0-1.0); Monocytes % (A) 5 %; Neutrophils # (A) 6.3 k/uL (1.3-7.7); Neutrophils % (A) 66 %; Platelet Count 220 k/uL (150-450); RBC 4.63 m/uL (3.80-5.40); RDW 13.2 % (11.5-15.5); WBC 9.6 k/uL (3.8-10.6)
[2022-05-31] MEDS ORDERED: ONDANSETRON 4 MG/2 ML VIAL IVP STA (03:06)
[2022-05-31] MEDS ORDERED: MORPHINE SULFATE 4 MG/ML SYRINGE IVP STA (03:06)
[2022-05-31] MEDS ORDERED: SODIUM CHLORIDE 0.9% 1,000 ML IV STA (03:06)
[2022-05-31 03:15] LABS: Appearance,Urine Cloudy (Clear); Bacteria,Urine Occasional /hpf; Bilirubin,Urine Negative (Negative); Blood,Urine Negative (Negative); Color,Urine Yellow; Glucose,Urine (UA) Negative (Negative); Ketones,Urine Negative (Negative); Leukocyte Esterase,Urine Moderate (Negative); Mucus,Urine Few /hpf; Nitrite,Urine Negative (Negative); PH, Urine 6.5 (5.0-8.0); Protein,Urine Trace (Negative); Specific Gravity,Urine 1.022 (1.001-1.035); Squamous Epithelial Cell,Urine 10 /hpf (0-4); Urobilinogen,Urine <2.0 mg/dL (<2.0); WBC,Urine 5 /hpf (0-5)
[2022-05-31 03:17] LABS: ALT 24 U/L (4-34); AST 22 U/L (14-36); African American GFR (CKD) >90 (>60 ml/min/1.73 sqM); Albumin 4.4 g/dL (3.5-5.0); Alkaline Phosphatase 70 U/L (38-126); Amylase 90 U/L (30-110); Anion Gap 9 mmol/L; Blood Urea Nitrogen 11 mg/dL (7-17); Calcium 8.8 mg/dL (8.4-10.2); Carbon Dioxide 27 mmol/L (22-30); Chloride 103 mmol/L (98-107); Glucose 118 mg/dL (74-99); Lipase 178 U/L (23-300); Non-African American GFR(CKD) >90 (>60 ml/min/1.73 sqM); Potassium 3.7 mmol/L (3.5-5.1); Sodium 139 mmol/L (137-145); Total Bilirubin 0.4 mg/dL (0.2-1.3); Total Protein 7.2 g/dL (6.3-8.2)
--- NOTE | 2022-05-31 03:17 | ED ---
Abdominal Pain HPI - General Chief Complaint: Abdominal Pain Stated Complaint: ABD Pain Time Seen by Provider: 05/31/22 02:55 Source: patient Mode of arrival: ambulatory Limitations: no limitations - History of Present Illness Initial Comments: Patient is a 31-year-old female presenting to the emergency room with complaints of abdominal pain radiating from the right upper quadrant to the umbilical region. She has been having this pain ongoing for approximately 1and half weeks but has had an increase in intensity with vomiting. She had a workup completed by this emergency room which found her to have acute cholecystitis without obstructions and was deemed eligible for discharge home with outpatient cholecystectomy. She is scheduled for a cholecystectomy on June [address] Ceron. In addition to her known cholecystitis she has a past medical history significant for migraine headaches and pilonidal cyst - Related Data Home Medications Medication Instructions Recorded Confirmed No Known Home Medications 05/24/22 05/24/22 Allergies Allergy/AdvReac Type Severity Reaction Status Date / Time Sulfa (Sulfonamide Allergy Unknown Verified 05/24/22 08:43 Antibiotics) sulfamethoxazole Allergy Unknown Verified 05/24/22 08:43 [From Bactrim] trimethoprim [From Bactrim] Allergy Unknown Verified 05/24/22 08:43 hydrocodone [From Vicodin] AdvReac Nausea & Verified 05/24/22 08:43 Vomiting Review of Systems ROS Statement: Those systems with pertinent positive or pertinent negative responses have been documented in the HPI. ROS Other: All systems not noted in ROS Statement are negative. Past Medical History Past Medical History: No Reported History Additional Past Medical History / Comment(s): migraine headaches, pilonidal cyst History of Any Multi-Drug Resistant Organisms: None Reported Past Surgical History: Adenoidectomy, Ear Surgery, Tonsillectomy Additional Past Surgical History / Comment(s): myringotomy & tubes Past Anesthesia/Blood Transfusion Reactions: Motion Sickness, Postoperative Nausea & Vomiting (PONV) Past Psychological History: No Psychological Hx Reported Smoking Status: Never smoker Past Alcohol Use History: None Reported Past Drug Use History: None Reported - Past Family History Mother Family Medical History: No Reported History General Exam - General Exam Comments Initial Comments: GENERAL: No acute distress, well developed, well nourished. In pain. HEENT: Normocephalic, atraumatic. Pupils equal, round, reactive to light. Moist mucous membranes. LUNGS: No respiratory distress. Clear to auscultation, no adventitious sounds, no use of accessory muscles. HEART: Mild tachycardia. Regular rhythm without murmur, rub, or gallop. ABDOMEN: Normal bowel sounds. Soft, non-distended. Diffuse abdominal tenderness, severe to right upper quadrant. BACK: Normal inspection. EXTREMITIES: No edema. No tenderness. Moves all extremities. NEUROLOGIC: Alert & oriented x 3. CN II-XII grossly intact. PSYCHIATRIC: Normal affect and behavior. DERMATOLOGIC: Skin intact, without rashes or lesions noted. Limitations: no limitations Course Vital Signs 05/31/22 02:43 Temperature 97.8 F Pulse Rate 86 Respiratory 12 Rate Blood Pressure 116/90 O2 Sat by Pulse 98 Oximetry Medical Decision Making - Medical Decision Making Was pt. sent in by a medical professional or institution (, PA, CERTIFIED PHYSICAL THERAPIST ASSISTANT, urgent care, hospital, or [facility]...) When possible be specific @ -No Did you speak to anyone other than the patient for history (EMS, parent, family, police, friend...)? What history was obtained from this source @ -No Did you review nursing and triage notes (agree or disagree)? Why? @ -I reviewed and agree with nursing and triage notes Were old charts reviewed (outside hosp., previous admission, EMS record, old EKG, old radiological studies, urgent care reports/EKG's, [facility] records)? Report findings @ -Previous emergency room visit, computed tomography scan and ultrasound Differential Diagnosis (chest pain, altered mental status, abdominal pain women, abdominal pain men, vaginal bleeding, weakness, fever, dyspnea, syncope, headache, dizziness, GI bleed, back pain, seizure, CVA, palpatations, mental health)? @ -Differential Abdominal Pain Women: Appendicitis, Cholecystitis, diverticulosis, ischemic bowel, pancreatitis, hepatitis, UTI, gastroenteritis, AAA, incarcerated hernia, bowel obstruction, constipation, inflammatory bowel, hepatitis, peptic ulcer disease, splenic infarction, perforated viscus, vulvitis, ovarian torsion, PID, kidney stone, placenta abruption, this is not meant to be an all-inclusive list EKG interpreted by me (3pts min.). @ -None done X-rays interpreted by me (1pt min.). @ -None done CT interpreted by me (1pt min.). @ -None done U/S interpreted by me (1pt. min.). @ -None done What testing was considered but not performed or refused? (CT, X-rays, U/S, labs)? Why? @ -Repeat computed tomography scan considered but deferred due to stable labs and recent computed tomography scan. What meds were considered but not given or refused? Why? @ -None Did you discuss the management of the patient with other professionals (professionals i.e. Dr., PA, CERTIFIED PHYSICAL THERAPIST ASSISTANT, lab, RT, psych nurse, web content & social media manager, code enforcement supervisor, teacher, chief procurement officer, director of casework department)? Give summary @ -Spoke with Dr. Ceron whom patient is scheduled to have cholecystectomy with on 06/06/2022 regarding patient presentation and inability to control pain or nausea vomiting despite multiple medication administration. He is accepting of observation admission. Was smoking cessation discussed for >3mins.? @ -No Was critical care preformed (if so, how long)? @ -No Were there social determinants of health that impacted care today? How? (Homelessness, low income, unemployed, alcoholism, drug addiction, transportation, low edu. Level, literacy, decrease access to med. care, senior care, rehab)? @ -No Was there de-escalation of care discussed even if they declined (Discuss DNR or withdrawal of care, Hospice)? DNR status @ -No What co-morbidities impacted this encounter? (DM, HTN, Smoking, COPD, CAD, Cancer, CVA, ARF, Chemo, Hep., AIDS, mental health diagnosis, sleep apnea, morbid obesity)? @ -None Was patient admitted / discharged? Hospital course, mention meds given and route, prescriptions, significant lab abnormalities, going to OR and other pertinent info. @ -31-year-old female presenting to the emergency room with worsening of abdominal pain which is diffuse but most severe to the right upper quadrant with nausea and vomiting. She was worked up on May 24 and found to have acute cholecystitis and was scheduled for cholecystectomy outpatient next week. Over the evening to night the pain became worse with nausea and vomiting worsening and not tolerable. IV hydration, morphine for pain and Zofran for nausea given will obtain CBC and CMP along with amylase and lipase. Diagnostic imaging deferred due to recent imaging. CBC and CMP along without any significant abnormalities. Amylase and lipase normal. Continued pain despite IV hydration, Zofran and morphine. Still with nausea as well. Will give Dilaudid and monitor response. No significant improvement in pain after Dilaudid as well. Spoke with Dr. Ceron regarding patient presentation. He is accepting of observation admissi on and plans for surgical intervention for her cholecystitis. Will keep patient nothing by mouth Place on IV hydration and continued pain medication all along with anti-emetics. Will admit patient in stable condition to observation for surgical intervention for cholecystitis. Undiagnosed new problem with uncertain prognosis? @ -No Drug Therapy requiring intensive monitoring for toxicity (Heparin, Nitro, Insulin, Cardizem)? @ -No Were any procedures done? @ -No Diagnosis/symptom? @ -Acute cholecystitis Acute, or Chronic, or Acute on Chronic? @ -Acute Uncomplicated (without systemic symptoms) or Complicated (systemic symptoms)? @ -Complicated Side effects of treatment? @ -No Exacerbation, Progression, or Severe Exacerbation? @ -No Poses a threat to life or bodily function? How? (Chest pain, [place], [place], pneumonia, PE, COPD, DKA, ARF, appy, cholecystitis, CVA, Diverticulitis, Homicidal, Suicidal, threat to staff... and all critical care pts) @ -Yes Case discussed with Dr. Howell. - Lab Data Result diagrams: 05/31/22 02:56 05/31/22 02:56 Lab Results 05/31/22 05/31/22 05/31/22 Range/Units 02:56 02:56 02:56 WBC 9.6 (3.8-10.6) k/uL RBC 4.63 (3.80-5.40) m/uL Hgb 12.9 (11.4-16.0) gm/dL Hct 39.0 (34.0-46.0) % MCV 84.3 (80.0-100.0) fL MCH 27.9 (25.0-35.0) pg MCHC 33.0 (31.0-37.0) g/dL RDW 13.2 (11.5-15.5) % Plt Count 220 (150-450) k/uL MPV 8.2 Neutrophils % 66 % Lymphocytes % 25 % Monocytes % 5 % Eosinophils % 3 % Basophils % 0 % Neutrophils # 6.3 (1.3-7.7) k/uL Lymphocytes # 2.4 (1.0-4.8) k/uL Monocytes # 0.5 (0-1.0) k/uL Eosinophils # 0.3 (0-0.7) k/uL Basophils # 0.0 (0-0.2) k/uL Sodium 139 (137-145) mmol/L Potassium 3.7 (3.5-5.1) mmol/L Chloride 103 (98-107) mmol/L Carbon Dioxide 27 (22-30) mmol/L Anion Gap 9 mmol/L BUN 11 (7-17) mg/dL Creatinine 0.80 (0.52-1.04) mg/dL Est GFR (CKD-EPI)AfAm >90 (>60 ml/min/1.73 sqM) Est GFR (CKD-EPI)NonAf >90 (>60 ml/min/1.73 sqM) Glucose 118 H (74-99) mg/dL Calcium 8.8 (8.4-10.2) mg/dL Total Bilirubin 0.4 (0.2-1.3) mg/dL AST 22 (14-36) U/L ALT 24 (4-34) U/L Alkaline Phosphatase 70 (38-126) U/L Total Protein 7.2 (6.3-8.2) g/dL Albumin 4.4 (3.5-5.0) g/dL Amylase 90 (30-110) U/L Lipase 178 (23-300) U/L Urine Color Yellow Urine Appearance Cloudy H (Clear) Urine pH 6.5 (5.0-8.0) Ur Specific [place] 1.022 (1.001-1.035) Urine Protein Trace H (Negative) Urine Glucose (UA) Negative (Negative) Urine Ketones Negative (Negative) Urine Blood Negative (Negative) Urine Nitrite Negative (Negative) Urine Bilirubin Negative (Negative) Urine Urobilinogen <2.0 (<2.0) mg/dL Ur Leukocyte Esterase Moderate H (Negative) Urine WBC 5 (0-5) /hpf Ur Squamous Epith Cells 10 H (0-4) /hpf Urine Bacteria Occasional H (None) /hpf Urine Mucus Few H (None) /hpf Disposition Clinical Impression: Acute cholecystitis Disposition: ADMITTED IP TO THIS HOSP Condition: Stable Is patient prescribed a controlled substance at d/c from ED?: No Time of Disposition: 04:07
[2022-05-31] MEDS ORDERED: HYDROmorphone 1 MG/ML 1 ML SYRINGE IVP STA (03:39)
[2022-05-31] MEDS ORDERED: NALOXONE 0.4 MG/ML 1 ML VIAL IV PRN ×2 (04:06→21:57)
[2022-05-31] MEDS ORDERED: HYDROmorphone 1 MG/ML 1 ML SYRINGE IVP PRN ×2 (04:06→21:57)
[2022-05-31] MEDS ORDERED: ONDANSETRON 4 MG/2 ML VIAL IVP PRN (04:06)
[2022-05-31] MEDS: SODIUM CHLORIDE 0.9% 1,000 ML IV SCH ×3 (05:33→22:41)
[2022-05-31] MEDS: HYDROmorphone 1 MG/ML 1 ML SYRINGE IVP PRN ×4 (06:44→18:40)
[2022-05-31] MEDS: ONDANSETRON 4 MG/2 ML VIAL IVP PRN ×2 (08:13→13:32)
[2022-05-31] MEDS: PIPERACILLIN-TAZOBACTAM 3.375 GM in SODIUM CHLORIDE 0.9% 100 ML IVPB SCH ×3 (10:28→22:49)
[2022-05-31] MEDS: METOCLOPRAMIDE 5 MG/ML 2 ML VIAL IVP PRN ×2 (10:41→18:40)
--- NOTE | 2022-05-31 14:27 | P.GSHP ---
History of Present Illness H&P Date: 05/31/22 CHIEF COMPLAINT: Abdominal pain HISTORY OF PRESENT ILLNESS: This is a 31-year-old female who presented to the hospital with complaints of right upper abdominal pain and a pain across the upper abdomen for one and half weeks. She does report that the pain radiates into the chest and shoulders. She has had gallbladder attacks off intermittently for the past year. Patient had an ER visit on May 24 for cholecystitis. And was discharged with surgical follow-up. Patient reported increase in pain and presented back to the ER. Patient seen and examined with Dr. Ceron PAST MEDICAL HISTORY: See below PAST SURGICAL HISTORY: See below MEDICATIONS: See below ALLERGIES: See below SOCIAL HISTORY: No illicit drug use. REVIEW OF SYSTEMS: CONSTITUTIONAL: Denies fever or chills. HEENT: Denies blurred vision, vision changes, or eye pain. Denies hemoptysis CARDIOVASCULAR: Denies chest pain or pressure. RESPIRATORY: No shortness of breath. GASTROINTESTINAL: See HPI for pertinent findings HEMATOLOGIC: Denies bleeding disorders. GENITOURINARY: Denies any blood in urine or increased urinary frequency. SKIN: Denies pruitis. Denies rash. PHYSICAL EXAM: VITAL SIGNS: Reviewed GENERAL: Well-developed in no acute distress. HEENT: No sclera icterus. Extraocular movements grossly intact. Moist buccal mucosa. Head is atraumatic, normocephalic. No nasal drainage. ABDOMEN: Soft. Nondistended. Tenderness palpation right upper quadrant NEUROLOGIC: Alert and oriented. Cranial nerves II through XII grossly intact. LABORATORY DATA: WBC is 9.6 Hgb 12.9 and platelets 220 Sodium 139 potassium 3.7 creatinine 0.80 LFTs normal lipase 178 Urine hCG not detected IMAGING: Computed tomography scan of abdomen pelvis from May 24 there is some pericholecystic fluid that could relate to acute cholecystitis. No evidence of appendicitis Ultrasound from May 24 shows no acute process. Cholelithiasis with contracted gallbladder. No evidence of acute cholecystitis. Hepatic steatosis. ASSESSMENT: 1. Possible Acute on chronic cholecystitis PLAN: -Patient scheduled for laparoscopic cholecystectomy today -Keep patient nothing by mouth -Continue IV antibiotics -Continue IV fluids -Continue symptomatic care Physician Job Coaching note has been reviewed by physician. Signing provider agrees with the documented findings, assessment, and plan of care. Past Medical History Past Medical History: No Reported History Additional Past Medical History / Comment(s): migraine headaches, pilonidal cyst History of Any Multi-Drug Resistant Organisms: None Reported Past Surgical History: Adenoidectomy, Ear Surgery, Tonsillectomy Additional Past Surgical History / Comment(s): myringotomy & tubes Past Anesthesia/Blood Transfusion Reactions: Motion Sickness, Postoperative Nausea & Vomiting (PONV) Past Psychological History: No Psychological Hx Reported Smoking Status: Never smoker Past Alcohol Use History: None Reported Past Drug Use History: None Reported Additional Drug Use History / Comment(s): doesn't use anymore - Past Family History Mother Family Medical History: No Reported History Medications and Allergies Home Medications Medication Instructions Recorded Confirmed Type No Known Home Medications 05/24/22 05/31/22 History Allergies Allergy/AdvReac Type Severity Reaction Status Date / Time Sulfa (Sulfonamide Allergy Unknown Verified 05/31/22 09:28 Antibiotics) sulfamethoxazole Allergy Unknown Verified 05/31/22 09:28 [From Bactrim] trimethoprim [From Bactrim] Allergy Unknown Verified 05/31/22 09:28 hydrocodone [From Vicodin] AdvReac Nausea & Verified 05/31/22 09:28 Vomiting Surgical - Exam Vital Signs Temp Pulse Resp BP Pulse Ox 97.8 F 86 12 116/90 98 05/31/22 02:43 05/31/22 02:43 05/31/22 02:43 05/31/22 02:43 05/31/22 02:43 Results - Labs 05/31/22 02:56 05/31/22 02:56 Abnormal Lab Results - Last 24 Hours (Table) 05/31/22 05/31/22 Range/Units 02:56 02:56 Glucose 118 H (74-99) mg/dL Urine Appearance Cloudy H (Clear) Urine Protein Trace H (Negative) Ur Leukocyte Esterase Moderate H (Negative) Ur Squamous Epith Cells 10 H (0-4) /hpf Urine Bacteria Occasional H (None) /hpf Urine Mucus Few H (None) /hpf Diabetes panel 05/31/22 Range/Units 02:56 Sodium 139 (137-145) mmol/L Potassium 3.7 (3.5-5.1) mmol/L Chloride 103 (98-107) mmol/L Carbon Dioxide 27 (22-30) mmol/L BUN 11 (7-17) mg/dL Creatinine 0.80 (0.52-1.04) mg/dL Glucose 118 H (74-99) mg/dL Calcium 8.8 (8.4-10.2) mg/dL AST 22 (14-36) U/L ALT 24 (4-34) U/L Alkaline Phosphatase 70 (38-126) U/L Total Protein 7.2 (6.3-8.2) g/dL Albumin 4.4 (3.5-5.0) g/dL Calcium panel 05/31/22 Range/Units 02:56 Calcium 8.8 (8.4-10.2) mg/dL Albumin 4.4 (3.5-5.0) g/dL Pituitary panel 05/31/22 Range/Units 02:56 Sodium 139 (137-145) mmol/L Potassium 3.7 (3.5-5.1) mmol/L Chloride 103 (98-107) mmol/L Carbon Dioxide 27 (22-30) mmol/L BUN 11 (7-17) mg/dL Creatinine 0.80 (0.52-1.04) mg/dL Glucose 118 H (74-99) mg/dL Calcium 8.8 (8.4-10.2) mg/dL Adrenal panel 05/31/22 Range/Units 02:56 Sodium 139 (137-145) mmol/L Potassium 3.7 (3.5-5.1) mmol/L Chloride 103 (98-107) mmol/L Carbon Dioxide 27 (22-30) mmol/L BUN 11 (7-17) mg/dL Creatinine 0.80 (0.52-1.04) mg/dL Glucose 118 H (74-99) mg/dL Calcium 8.8 (8.4-10.2) mg/dL Total Bilirubin 0.4 (0.2-1.3) mg/dL AST 22 (14-36) U/L ALT 24 (4-34) U/L Alkaline Phosphatase 70 (38-126) U/L Total Protein 7.2 (6.3-8.2) g/dL Albumin 4.4 (3.5-5.0) g/dL
[2022-05-31] MEDS ORDERED: LACTATED RINGERS 1,000 ML IV ONE ×2 (20:59→21:57)
[2022-05-31] MEDS ORDERED: ONDANSETRON 4 MG/2 ML VIAL IVP ONE (21:20)
[2022-05-31] MEDS ORDERED: SCOPOLAMINE 1 MG/72 HR PATCH TRANSDERM ONE (21:20)
[2022-05-31] MEDS ORDERED: SUCCINYLCHOLINE CHLORIDE 200 MG/10 ML VIAL IV ONE (21:24)
[2022-05-31] MEDS ORDERED: PROPOFOL 10 MG/ML 20 ML VIAL IV ONE (21:24)
[2022-05-31] MEDS ORDERED: fentaNYL (PF) 50 MCG/ML 2 ML AMP ONE (21:24)
[2022-05-31] MEDS ORDERED: MIDAZOLAM 2 MG/2 ML VIAL ONE (21:24)
[2022-05-31] MEDS ORDERED: KETOROLAC 15 MG/ML 1 ML VIAL ONE (21:24)
[2022-05-31] MEDS ORDERED: SODIUM CHLORIDE 0.9% 50 ML with ceFAZolin 2,000 MG IV ONE ×2 (21:25)
[2022-05-31] MEDS ORDERED: BUPIVACAIN-EPI 0.25%-1:200,000 30 ML VIAL SQ ONE (21:39)
[2022-05-31] MEDS ORDERED: ACETAMINOPHEN TAB 325 MG TAB PO PRN (21:57)
[2022-05-31] MEDS ORDERED: HYDROmorphone 0.5 MG/0.5 ML SYRINGE IVP PRN (21:57)
[2022-05-31] MEDS ORDERED: HYDROcodone/APAP 5-325MG 1 EACH TAB PO PRN ×2 (21:57)
--- NOTE | 2022-05-31 21:57 | P.OP ---
Date of Procedure: 05/31/22 Preoperative Diagnosis: Acute cholecystitis Postoperative Diagnosis: Acute cholecystitis Procedure(s) Performed: Laparoscopic cholecystectomy Anesthesia: NADIA Surgeon: Fitz Ceron Estimated Blood Loss (ml): 5 Pathology: other (Gallbladder) Condition: stable Disposition: PACU Description of Procedure: The patient was placed on the operating table. The patient received a general endotracheal tube anesthesia. The patients abdomen was prepped and draped in the usual sterile fashion. Through an infraumbilical stab incision, the fascia of the anterior abdominal wall was grasped with a pair of Kochers and then the Veress needle was placed in the peritoneal cavity. Position of the Veress needle was confirmed with positive drop test. The abdomen was then insufflated. After adequate insufflation, the 10 mm trocar was placed in the peritoneal cavity. Following this the laparoscope was placed in the peritoneal cavity. The patient was placed in the head-up, right side up position and then a 5 mm trocar was placed in the right lateral and right subcostal position under direct visualization. A 8 mm trocar was placed in the epigastric position. The gallbladder was acutely inflamed. The gallbladder was grasped in the fundus and infundibulum. Traction on the gallbladder was placed in the lateral and the cephalad positions. The triangle of [place] was visualized.. The cystic duct was bluntly dissected until the union of the cystic duct and common bile duct was seen. A critical view of safety was achieved. The cystic duct was then divided and sealed with the Harmonic scissors. A PDS Endoloop was then placed throughout the cystic duct stump. The cystic artery divided and sealed with the Harmonic scissors. The gallbladder was then removed from the liver bed using Harmonic scissors. The gallbladder was then extracted through the epigastric port site. Operative field was checked for any bleeding spots and Harmonic scissors was used to coagulate the liver bed. The abdomen was irrigated. The trocars were removed. The skin was closed using interrupted 3-0 Vicryl suture. Dermabond dressing were applied. The patient tolerated the procedure well.
[2022-05-31] MEDS: KETOROLAC 15 MG/ML 1 ML VIAL IVP SCH (22:48)
[2022-06-01] MEDS: SODIUM CHLORIDE 0.9% 1,000 ML IV SCH (04:29)
[2022-06-01] MEDS: KETOROLAC 15 MG/ML 1 ML VIAL IVP SCH ×2 (06:03→12:53)
[2022-06-01 06:50] VITALS: BP 93/56; PULSE 86; RESP 20; TEMP 97.6
[2022-06-01] MEDS: PIPERACILLIN-TAZOBACTAM 3.375 GM in SODIUM CHLORIDE 0.9% 100 ML IVPB SCH (08:28)
[2022-06-01] MEDS ORDERED: DOCUSATE 100 MG CAP PO SCH (09:00)
[2022-06-01] MEDS ORDERED: ENOXAPARIN 40 MG/0.4 ML SYRINGE SQ SCH (09:00)
--- NOTE | 2022-06-01 09:35 | P.CONS ---
History of Present Illness - Reason for Consult Consult date: 05/31/22 Medical management cholecystitis - History of Present Illness This is a 31-year-old female who presented to the emergency department with was recently for gallbladder issues and was scheduled tentatively this for acute cholecystectomy outpatient although patient pain became too intense and presented back to the emergency department. Patient admitted under Gen. surgery services with plans for acute cholecystectomy. Patient did undergo laparoscopic cholecystectomy on 05-31-2022 and we are placed on consult later in the evening for medical management. [facility] no real significant medical history other than migraine headache and a pilonidal cyst. Patient denies smoking or of a being denies any drug use and reports occasionally drinks may be once every few months. Patient is afebrile and denies any chest pain or shortness of breath. Labs reviewed from yesterday were within normal limits. We will continue to follow with general surgery. Recommend incentive spirometer and increased activity as tolerated. Review Of Systems: Constitutional: No fever, no chills, no night sweats. No weight change. No weakness, fatigue or lethargy. No daytime sleepiness. EENT: No headache. No blurred vision or double vision, no loss of vision. No loss of Hearing, no ringing in the ears, no dizziness. No nasal drainage or congestion. No epistaxis. No sore throat. Lungs: No shortness of breath, cough, no sputum production. No wheezing. Cardiovascular: No chest pain, no lower extremity edema. No palpitations. No paroxysmal nocturnal dyspnea. No orthopnea. No lightheadedness or dizziness. No syncopal episodes. Abdominal: Reports abdominal pain. Reports nausea, reports vomiting. No diarrhea. No constipation. No bloody or tarry stools.. Reports loss of appetite. Genitourinary: No dysuria, increased frequency, urgency. No urinary retention. Musculoskeletal: No myalgias. No muscle weakness, no gait dysfunction, no frequent falls. No back pain. No neck pain. Integumentary: No wounds, no lesions. No rash or pruritus. No unusual bruising. No change in hair or nails. Neurologic: No aphasia. No facial droop. No change in mentation. No head injury. No headache. No paralysis. No paresthesia. Psychiatric: No depression. No anxiety. No mood swings. Endocrine: No abnormal blood sugars. No weight change. No excessive sweating or thirst. No cold intolerance. PHYSICAL EXAMINATION: GENERAL: The patient is alert and oriented x4, Well developed, well nourished. Obese HEENT: Pupils are round and equally reacting to light. EOMI. no scleral icterus. No conjunctival pallor. Normocephalic, atraumatic. No pharyngeal erythema. No thyromegaly. CARDIOVASCULAR: S1 and S2 muffled PULMONARY: diminished breath sounds bilaterally with no wheezing or rhonchi noted. ABDOMEN: soft. tender on exam of right upper quadrant. obese. non-distended, normoactive bowel sounds. No palpable organomegaly. MUSCULOSKELETAL: No joint swelling or deformity. EXTREMITIES: No cyanosis, clubbing, or pedal edema. NEUROLOGICAL: Gross neurological examination did not reveal any focal deficits. Diffuse weakness SKIN: No rashes. Assessment: . Abdominal pain with nausea and vomiting likely due to acute on chronic cholecystitis Status post acute laparoscopic cholecystectomy Obesity with a BMI of 32.9 History of migraines GI prophylaxis DVT prophylaxis Full code Plan: Recommend to continue with current medications and management per general surgery services. Patient is status post laparoscopic cholecystectomy yesterday evening and reports continued pain Prior to surgery patient was having some uncontrolled nausea and Zofran not relieving added Reglan and recommend to use anti-nausea medications as needed Encourage incentive spirometer use at least 10 times every hour while awake Encouraged increased activity and slowly advancing diet as tolerated We will continue to follow along with general surgery services during hospitalization. Thank you kindly for this consultation The impression and plan of care has been dictated by Meg Pena, nurse practitioner as directed. Dr. Michell SHANKAR I have performed a history and examination and MDM of this patient, discussed the same with the dictator, and agree with the dictator's assessment and plan as written ,documented as a scribe. Based on total visit time, I have performed more than 50% of the visit. Any additional findings or plans will be noted. Past Medical History Past Medical History: No Reported History Additional Past Medical History / Comment(s): migraine headaches, pilonidal cyst History of Any Multi-Drug Resistant Organisms: None Reported Past Surgical History: Adenoidectomy, Ear Surgery, Tonsillectomy Additional Past Surgical History / Comment(s): myringotomy & tubes Past Anesthesia/Blood Transfusion Reactions: Motion Sickness, Postoperative Nausea & Vomiting (PONV) Past Psychological History: No Psychological Hx Reported Smoking Status: Never smoker Past Alcohol Use History: None Reported Past Drug Use History: None Reported Additional Drug Use History / Comment(s): doesn't use anymore - Past Family History Mother Family Medical History: No Reported History Medications and Allergies Home Medications Medication Instructions Recorded Confirmed Type No Known Home Medications 05/24/22 05/31/22 History Allergies Allergy/AdvReac Type Severity Reaction Status Date / Time Sulfa (Sulfonamide Allergy Unknown Verified 05/31/22 09:28 Antibiotics) sulfamethoxazole Allergy Unknown Verified 05/31/22 09:28 [From Bactrim] trimethoprim [From Bactrim] Allergy Unknown Verified 05/31/22 09:28 hydrocodone [From Vicodin] AdvReac Nausea & Verified 05/31/22 09:28 Vomiting Physical Exam Vitals: Vital Signs Temp Pulse Pulse Resp BP BP Pulse Ox 05/31/22 08:13 15 05/31/22 07:00 97.9 F 62 15 97/57 100 05/31/22 05:22 18 05/31/22 02:43 97.8 F 86 12 116/90 98 Intake and Output 05/30/22 05/31/22 05/31/22 22:59 06:59 14:59 Intake Total 1000 Balance 1000 Intake: Intake, IV Titration 1000 Amount Sodium Chloride 0.9% 1, 1000 000 ml @ 999 mls/hr IV . Q1H1M STA Rx#:[id number] Other: Voiding Method Toilet Toilet # Voids 1 Weight 81.647 kg Results CBC & Chem 7: 05/31/22 02:56 05/31/22 02:56 Labs: Abnormal Lab Results - Last 24 Hours (Table) 05/31/22 05/31/22 Range/Units 02:56 02:56 Glucose 118 H (74-99) mg/dL Urine Appearance Cloudy H (Clear) Urine Protein Trace H (Negative) Ur Leukocyte Esterase Moderate H (Negative) Ur Squamous Epith Cells 10 H (0-4) /hpf Urine Bacteria Occasional H (None) /hpf Urine Mucus Few H (None) /hpf
--- NOTE | 2022-06-01 12:32 | P.DS ---
Providers Date of admission: 05/31/22 04:07 Expected date of discharge: 06/01/22 Attending physician: Fitz Ceron Consults: 05/31/22 21:57 Consult Physician Routine Consulting Provider: Catalino Bailey Consult Reason/Comments: Medical management Do you want consulting provider notified?: Yes Primary care physician: Sergio Valera [facility] Hospital Course: Discharge diagnosis 1. Acute cholecystitis status post laparoscopic cholecystectomy Hospital course This is a 31-year-old female who presented to the hospital with complaints of right upper abdominal pain and a pain across the upper abdomen for one and half weeks. Computed tomography scan of abdomen pelvis from May 24 there is some pericholecystic fluid that could relate to acute cholecystitis. An ultrasound from May 24 shows no acute process. Cholelithiasis with contracted gallbladder. No evidence of acute cholecystitis. Hepatic steatosis. Patient diagnosed with acute cholecystitis. She status post laparoscopic cholecystectomy. She is tolerating diet. Her pain is controlled. She's afebrile. She has been up and ambulating. She stable for discharge. Incision site clean dry and intact. Please refer to chart for any further details. Physician Hair Worker note has been reviewed by physician. Signing provider agrees with the documented findings, assessment, and plan of care. Patient Condition at Discharge: Stable Plan - Discharge Summary New Discharge Prescriptions: New Ibuprofen [Motrin] 600 mg PO Q8HR PRN #30 tab PRN Reason: Pain oxyCODONE HCL [OxyIR] 5 mg PO Q6H PRN 3 Days #12 tab PRN Reason: Pain Acetaminophen Tab [Tylenol Tab] 650 mg PO Q4H PRN #30 tablet PRN Reason: Pain Discharge Medication List Acetaminophen Tab [Tylenol Tab] 650 mg PO Q4H PRN #30 tablet 06/01/22 [Rx] Ibuprofen [Motrin] 600 mg PO Q8HR PRN #30 tab 06/01/22 [Rx] oxyCODONE HCL [OxyIR] 5 mg PO Q6H PRN 3 Days #12 tab 06/01/22 [Rx] Follow up Appointment(s)/Referral(s): Fitz Ceron MD [STAFF PHYSICIAN] - 1 Week Activity/Diet/Wound Care/Special Instructions: No driving while taking OxyIR No lifting over 10 pounds Shower daily. No soaking or tub baths for 2 weeks Very light activity until you are reevaluated at your follow up appointment with your surgeon Discharge Disposition: HOME SELF-CARE
== END 2022-06-01 14:40 | disposition home or self-care (01) ==
LOC: EC 02:35 → 6NMEDSUR 04:07
PROVIDERS: ADMIT Surgery; ATTEND Surgery
DX: K80.12 Calculus of gallbladder with acute and chronic cholecystitis without obstruction (principal); G43.909 Migraine, unspecified, not intractable, without status migrainosus; E66.9 Obesity, unspecified; Z68.32 Body mass index [BMI] 32.0-32.9, adult; Z87.2 Personal history of diseases of the skin and subcutaneous tissue; Z88.1 Allergy status to other antibiotic agents; Z88.2 Allergy status to sulfonamides; Z88.5 Allergy status to narcotic agent; Z98.890 Other specified postprocedural states
CPT/HCPCS: 96376; 96375 ×2; 96361; 96374; 99284; 36415; 88304; 80053; 82150; 83690; 85025; 81001; 81025; 47562; G0378 ×2; J2543 ×2; J2250; J0330; J2270; J2765; J2405; J0690; J1650; J3010; J1170; J1885 ×2; J2704